=== PATIENT | male | born 1955 | race Caucasian/White ===

== ENCOUNTER 2017-09-12 11:08 | Emergency (ER) | payer OTHER ==
[2017-09-12] MEDS ORDERED: NA CHLORIDE 0.9% 1,000 ML ONE (11:52)
[2017-09-12 12:08] LABS: Absolute Lymphocytes (CBC) 2.1 K/uL (0.7-4.9); Absolute Monocytes 0.6 K/uL (0.1-1.3); Absolute Neutrophil 8.3 K/uL (1.8-8.0); Basophils % 0.4 % (0-1.3); Eosinophils % 0.4 % (0-4.4); Hematocrit 45.4 % (39.6-49.0); Lymphocytes % 18.5 % (15.3-44.8); MCH 29.6 pg (27.0-35.0); MCV 87.8 fL (80-100); MPV 8.9 fL (7.6-11.3); Monocytes % 5.8 % (3.3-12.3); RBC Red Blood Cell Count 5.18 M/uL (4.33-5.43)
[2017-09-12 12:23] LABS: Albumin 4.3 g/dL (3.4-5.0); Bilirubin Total 2.3 mg/dL (0.2-1.0); Potassium 4.9 mmol/L (3.5-5.1); Protein, Total 7.6 g/dL (6.4-8.2)
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
[2017-09-12 14:42] LABS: Albumin 4.2 g/dL (3.4-5.0); Bilirubin Total 2.2 mg/dL (0.2-1.0); Potassium 4.4 mmol/L (3.5-5.1); Protein, Total 7.6 g/dL (6.4-8.2)
--- NOTE | 2017-09-13 08:57 | EKG ---
Test Date: 2017-09-12 Test Time: 11:16:17 Technical Writer: MARQUES MEASUREMENT RESULTS: Intervals: Rate: 59 CO: 146 QRSD: 90 QT: 420 QTc: 415 [place]: P: 76 CO: 146 QRS: 51 T: 73 INTERPRETIVE STATEMENTS: Sinus bradycardia Otherwise normal ECG Compared to ECG 05/14/2008 06:02:34 Sinus rhythm no longer present Electronically Signed On 09-13-17 08:56:40 CDT by Bulmaro Stringer
== END 2017-09-12 15:35 | disposition home or self-care (01) ==
LOC: ER 11:08
DX: E86.0 Dehydration (principal); I25.10 Atherosclerotic heart disease of native coronary artery without angina pectoris
CPT/HCPCS: 36415; 80053; 84484; 85025; 85379; 93005; 96360; 96361; 99284; J7030